=== PATIENT | female | born 1990 | race Caucasian/White ===

== ENCOUNTER 2021-11-10 00:06 | Emergency (ER) | payer OTHER ==
[~2021-11-10] VITALS: Ht 162.6 cm; Wt 65.0 kg
[2021-11-10] MEDS ORDERED: PREDNISONE 20MG TABLET PO ONE (01:30)
[2021-11-10] MEDS ORDERED: PRED10TA MT (02:04)
[2021-11-10 02:28] VITALS: BP 116/68
== END 2021-11-10 02:29 | disposition home or self-care (01) ==
LOC: ER 00:06
DX: J45.909 Unspecified asthma, uncomplicated (principal); T78.40XA Allergy, unspecified, initial encounter; X58.XXXA Exposure to other specified factors, initial encounter
CPT/HCPCS: 93005; 99283; J7512